=== PATIENT | female | born 1980 | race Caucasian/White ===

== ENCOUNTER 2022-06-27 14:02 | Emergency (ER) | payer SELFPAY ==
[~2022-06-27] VITALS: Ht 162.6 cm; Wt 63.5 kg
--- NOTE | 2022-06-27 14:40 | NUR ---
ROLLER REPAIRER NOTIFIED
--- NOTE | 2022-06-27 15:08 | NUR ---
SS consult requested for homelessness. Pt. is a 22-year-old female who was [facility] to [facility] due to homelessness. Upon SS consult, pt. is alert and oriented x3. Pt. appears drowsy and presents with slurred speech. Pt. appears disheveled and does not provide appropriate eye contact. Pt. was cooperative throughout the assessment. Pt. stated she was homeless and had not eaten in one week. Pt. stated she has one family member but they will not clam picker the phone anymore. environmental restoration planner offered pt. homeless resources and pt. accepted them. Pt. stated she has a history with methamphetamines, cannabinoids and alcohol. environmental restoration planner offered pt. addiction resources. Pt. denied suicidal/homicidal ideation. Pt. provided no further information. Plan: environmental restoration planner provided the pt. with a TAP card and placed the homeless waiver in the chart. Pt. stated she was going to go to a retirement. environmental restoration planner provided the pt. with the following resources: Year-round shelters: [facility] [address] [place], [place] [phone] ; [facility] [facility] [place] [address] [place] [address]; [place] [facility] Qynmqex1396 [facility] [address] Hygiene: [place] [facility]: [address] [facility] ; [place] [facility] [address] [facility] ; [facility] 8429 [facility] . Food Resources: [place] [facility] at [facility]- 6020 [facility]. [place]; Meet Each Need with Dignity ([facility]) [address]45 [facility]ick[facility] Spangle; [facility] 3065 [facility]; [facility] 5123 [facility]. Mental Health resources provided: [facility] [address] [place] [address] ; [facility] [address] [facility] [address], [place], [place] [phone] ; Ashley [address] [facility] [address] [place], [place] [id number] ; [facility] [address] [place] [address] Healthcare Clinics: [facility] 6551 [facility], [address] [place]. [place] ; [facility] 6801 [facility] [address] [place] [address]; [facility] [address] [facility]. [place] [address] [phone] Substance Abuse resources provided included: [facility] Substance Abuse Self-Helpline ([facility]) ; CRI -HELP 40710 [facility] [id number] ; [facility] [address] [address] [facility] [address] ; [facility] 98150 [facility] [phone] ; [facility] [address] [facility] [phone] ; [facility] 4940 [facility] [phone] ; Chanelle [facility] 909 [facility]. [facility] [phone] ; [facility] Substance Abuse Helpline([facility])-[facility] ; [facility] ; [facility]; [facility] [place]; [facility] Harshil Garibay; [facility] [place]; [facility] [place]; [facility]; [facility]. Sophia Allen; Alcoholics Anonymous -sfv; Ni ; Marijuana Anonymous -SFV; Narcotics Anonymous [email or web address];
--- NOTE | 2022-06-27 17:00 | NUR ---
PT WAS PROVIDED W MEAL, SEEN BY HADLEY MCFADDEN AND WAS PROVIDED W HOMELESS REFFERALS. PT D/C IN STABLE CONDITION.
[2022-06-27 19:47] VITALS: BP 121/60
[2022-06-28] MEDS ORDERED: CEPH500C2 PO (10:06)
== END 2022-06-27 17:00 | disposition home or self-care (01) ==
LOC: ER 14:03 → EDBD 14:03 → ER 17:00
DX: F15.10 Other stimulant abuse, uncomplicated (principal)

== ENCOUNTER 2022-06-28 08:15 | Emergency (ER) | payer SELFPAY ==
[~2022-06-28] VITALS: Ht 167.6 cm; Wt 64.9 kg
--- NOTE | 2022-06-28 08:40 | NUR ---
PHLEB AT BEDSIDE FOR BLOOD DRAW
--- NOTE | 2022-06-28 08:55 | NUR ---
URINE SAMPLE COLLECTED AND SENT TO LAB
--- NOTE | 2022-06-28 08:55 | NUR ---
SETTER MACHINE AT BEDSIDE FOR US
[2022-06-28 08:59] LABS: BASOPHILS % (AUTO) 0.1 % (0.0-2.0); EOSINOPHILS % (AUTO) 0.8 % (0.0-6.0); HEMATOCRIT 39 % (33-45); HEMOGLOBIN 12.7 g/dL (11.5-14.8); LYMPHOCYTES # (AUTO) 1.6 K/uL (0.8-4.8); LYMPHOCYTES % (AUTO) 14.1 % (20.0-44.0); MEAN CORPUSCULAR HGB CONC 33 g/dl (31.0-36.0); MEAN CORPUSCULAR VOLUME 89 fL (82-100); MONOCYTES # (AUTO) 0.9 K/uL (0.1-1.30); MONOCYTES % (AUTO) 7.5 % (2.0-12.0); NEUTROPHILS # (AUTO) 8.9 K/uL (1.8-8.9); NEUTROPHILS % (AUTO) 77.5 % (43.0-81.0); PLATELET COUNT (AUTO) 308 K/uL (150-450); RED BLOOD CELL COUNT(AUTO) 4.36 MIL/uL (4.0-5.2); WHITE BLOOD COUNT (AUTO) 11.5 K/uL (4.3-11.0)
--- NOTE | 2022-06-28 09:00 | NUR ---
able to tolerate liquid/food. Ate breakfast 100%
[2022-06-28 09:21] LABS: ALBUMIN 2.9 g/dL (3.4-5.0); BILIRUBIN,DIRECT 0.3 mg/dL (0.0-0.2); BILIRUBIN,TOTAL 0.7 mg/dL (0.2-1.0); CALCIUM, SERUM 8.5 mg/dL (8.5-10.1); CREATININE 0.7 mg/dL (0.6-1.3); POTASSIUM 3.6 mmol/L (3.5-5.1); TOTAL PROTEIN, SERUM 7.6 g/dL (6.4-8.2)
[2022-06-28 09:36] LABS: BILIRUBIN,URINE SMALL (NEGATIVE); COLOR,URINE YELLOW (YELLOW); LEUKOCYTE ESTERASE ,URINE LARGE (NEGATIVE); NITRITE, URINE NEGATIVE (NEGATIVE); PH,URINE 8.5 (5.0-8.0); PROTEIN,URINE 100 mg/dl (NEGATIVE); UGLUCOSE NEGATIVE (NEGATIVE)
[2022-06-28 09:59] LABS: BACTERIA,URINE Many /HPF (None Seen); RBC,URINE 0-2 /HPF (0-2)
[2022-06-28 10:00] LABS: SQUAMOUS EPITHELIAL CELL,UR Rare /HPF (None Seen)
[2022-06-28] MEDS ORDERED: CEPHALEXIN MONOHYDRATE 500 MG CAPSULE PO ONE ×2 (10:06→10:30)
[2022-06-28] MEDS ORDERED: CEPH500C2 PO (10:06)
--- NOTE | 2022-06-28 10:15 | NUR ---
Juanita MCFADDEN at bedside
--- NOTE | 2022-06-28 10:17 | NUR ---
Patient discharged to home in stable condition. Written and verbal after care instructions given. Patient verbalizes understanding of instruction. Declines longterm placement. Given resources for homelessness/tap card and food
[2022-06-28 10:19] VITALS: BP 124/76
--- NOTE | 2022-06-28 10:25 | NUR ---
SS Note: SS consult requested regarding homelessness. The pt. is a 22-year old female who came in to the ED due to complaints of abdominal pain. The p. has Hx. of Methamphetamine use. SW met with pt. at bedside.The pt. appears unkempt with piercing eye contact. The pt. is irritable, with dysphoric mood and affect. The pt.'s speech and thought process are WNL. The pt. denies SI/HI and denies hallucinations. SW attempted to assist patient with her discharge plan. SW provied pt. with homeless resources and pt. accepted them. SW offered TAP card and pt. refused. Pt. was demanding taxi transport. SW unable to engage pt. in a conversation as pt. became verbally aggressive. SW attempted to de-escalate the pt. threatened SW. Resources provided include: Year-round shelters: [place] [facility] [address] [place] [address] ; [place] [facility] [address] [place] [address]; [place] [facility] [id number] [facility] [address] Hygiene: [place] [facility]: [address] [facility] ; [place] [facility] [address] [facility] ; [facility] 4563 [facility] . Food Resources: [place] [facility] at [facility]- 5700 [facility]; Meet Each Need with Dignity ([facility]) [address]231 [facility]; [facility] 5486 [facility]; [facility] 0225 [facility]. Mental Health resources provided: [facility] [address] [place] [address] ; [facility] [address] [facility] [address], [place] [address] ; Ashley German [facility] [address] [place] [address] ; [facility] [place], [place] [phone] Healthcare Clinics: [facility] [address], [address] [place]. [place] ; [facility] [place] [facility] [address] [facility] [address] [place] [address]; [facility] [address] [facility] [place] [address] [phone] Counseling--Outpatient [facility] [address] [facility], [place] [address] (Specializes in in-depth psychotherapy for emotional distress: anxiety, depression, interpersonal conflicts, life transitions, childhood abuse) [facility] [address] [place] [address] (Assist with solving problem marital difficulties, separation & divorce, aging parents, & grief, chronic & terminal illness) [facility] [address] [place] [address] (Deal with loss & grief, anxiety, marital difficulties) Homebound/Mental Health Services [address], [address] [place] [address] (Provide in-home mental services to people who are incapable of leaving their homes) [facility] for Needs of the Elderly Senior Service/Resource Center [address] [place] [address] [facility] 6514 [place] [address] PSYCHIATRIC OUTPATIENT SERVICES [facility] Partial Hospitalization and Intensive Outpatient Program (Managed Care and [place] Only)[address] James Dyson. [facility] [phone] [facility] Partial Hospitalization and Outpatient [id number] [address] [place], [place] [phone] DEMIAN MILEY [facility] [id number] [place], [place] [phone] [facility] Demian Garibay Partial Hospitalization and Outpatient [id number] Candy Walsh, [phone] Substance Abuse resources provided included: [facility] Substance Abuse Self-Helpline ([facility]) ; CRI [facility]HELP [address]441 [facility]. [place] [address] ; [facility] 76187 [facility] [address] ; [facility] [address] [place] [facility]. [place] [phone] ; [facility] 400 [facility] [address] ; [facility] 4940 [facility] [phone] ; Chanelle [facility] 909 [facility] [phone] ; [facility] Substance Abuse Helpline([facility])-[facility] ; [facility] ; [facility] [place]; [facility] [place]; [facility] Demian Garibay; [facility] [place] [facility] [place]; [place]; [facility] [place]; [facility]; Alcoholics Anonymous -SFV; [place]-Dvor-Mlwsayj ; Marijuana Anonymous -SFV; Narcotics Anonymous [email or web address];
== END 2022-06-28 10:33 | disposition home or self-care (01) ==
LOC: ER 08:17
DX: N39.0 Urinary tract infection, site not specified (principal)
CPT/HCPCS: 36415; 76705-TC; 80048-TC; 80076-TC; 81001; 83690-TC; 84702-TC; 85025-TC; 87086-TC; 87186-TC